=== PATIENT | female | born 2000 | race Caucasian/White ===

== ENCOUNTER 2022-03-22 13:38 | Emergency (ER) | payer OTHER ==
[~2022-03-22] VITALS: Ht 167.6 cm; Wt 81.7 kg
[2022-03-22 14:42] LABS: Source, Urine Clean Catch
[2022-03-22 14:47] LABS: Appearance, Urine Clear (Clear); Bilirubin, Urine Neg (Neg); Blood, Urine 3+ (Neg); Color, Urine Yellow (P-Yellow); Glucose Qualitative, Urine Neg (Neg); Ketones, Urine Neg (Neg); Leukocyte Esterase, Urine 1+ (Neg); Nitrite, Urine Neg (Neg); Protein, Urine Neg (Neg); Specific Gravity, Urine 1.025 (1.003-1.022); Urobilinogen, Urine NORM (Normal)
[2022-03-22 15:13] LABS: Bacteria Many /hpf; Squamous Epithelial Cells Mod /hpf (Few)
[2022-03-22 15:14] LABS: Mucus Heavy (0-Heavy)
[2022-03-22] MEDS ORDERED: NITR100CA PO (15:53)
== END 2022-03-22 15:59 | disposition home or self-care (01) ==
LOC: ER 13:38
PROVIDERS: Physician Assistant
DX: N39.0 Urinary tract infection, site not specified (principal); F17.290 Nicotine dependence, other tobacco product, uncomplicated
CPT/HCPCS: 81001; 81025